=== PATIENT | male | born 1975 ===

== ENCOUNTER 2018-07-15 15:09 | Outpatient (CLI) | payer OTHER ==
[~2018-07-15] VITALS: Ht 167.6 cm; Wt 71.2 kg
== END 2018-07-15 15:25 | disposition home or self-care (01) ==
LOC: OFIC 805 15:09
DX: H93.13 Tinnitus, bilateral (principal); R42 Dizziness and giddiness

== ENCOUNTER 2018-08-08 12:35 | Outpatient (CLI) | payer OTHER ==
[~2018-08-08] VITALS: Ht 152.4 cm; Wt 71.2 kg
== END 2018-08-08 12:45 | disposition home or self-care (01) ==
LOC: OFIC 805 12:35
DX: H93.13 Tinnitus, bilateral (principal); R42 Dizziness and giddiness